=== PATIENT | female | born 1945 | race Hispanic/Latino ===

== ENCOUNTER 2024-06-14 08:31 | Outpatient (CLI) | payer MEDICARE ==
[2024-06-14 09:33] LABS: #Basophils 0.02 10x3/uL (0.0-0.2); #Eosinophils 0.34 10x3/uL (0.0-0.5); #Neutrophils 4.42 10x3/uL (1.5-8.4); %Basophils 0.3 % (0.0-2.0); %Lymphocytes 24.3 % (18.0-47.0); %Monocytes 4.5 % (0.0-10.0); %Neutrophils 65.6 % (40.0-75.0); Hematocrit 36.4 % (34.9-44.5); Hemoglobin 11.3 g/dL (12.0-15.5); Mean Corpuscular Volume 87.1 fL (81.6-98.3); Mean Platelet Volume 11.2 fL (7.4-10.4); Platelet Count 216 10x3/uL (150-450); RBC Distribution Width 12.9 % (11.5-14.5); Red Blood Cell (RBC) Count 4.18 10x6/uL (3.90-5.03); White Blood Cell (WBC) Count 6.7 10x3/uL (3.5-10.5)
== END 2024-06-14 08:32 | disposition home or self-care (01) ==
LOC: CSHLAB 08:31
PROVIDERS: ATTEND Surgery
DX: Z01.818 Encounter for other preprocedural examination (principal); C18.9 Malignant neoplasm of colon, unspecified
CPT/HCPCS: 85025; 93005; 93010

== ENCOUNTER 2024-06-17 05:55 | Day surgery (SDC) | payer MEDICARE ==
[2024-06-14 08:56] VITALS: BMI 28.5
[2024-06-17] MEDS ORDERED: PROPOFOL 20 ML ONE (08:13)
[2024-06-17] MEDS ORDERED: fentaNYL 50 mcg/mL 1 mL Vial ONE (08:13)
[2024-06-17] MEDS ORDERED: Lidocaine 1% PF 5 ML VIAL ONE (08:13)
[2024-06-17] MEDS ORDERED: Bupivacaine/Epinephrine 0.25% 30 ML VIAL ONE (08:15)
[2024-06-17] MEDS ORDERED: CEFAZOLIN 2 GM VIAL ONE (08:18)
[2024-06-17] MEDS ORDERED: ePHEDrine Sulfate 50 MG/10 ML VIAL ONE (08:38)
[2024-06-17] MEDS ORDERED: Ondansetron PF 4 MG/2 ML Vial ONE (09:00)
== END 2024-06-17 10:23 | disposition home or self-care (01) ==
LOC: CSHSDC 05:55
PROVIDERS: ATTEND Surgery
PROC: 0JH63WZ Insertion of Totally Implantable Vascular Access Device into Chest Subcutaneous Tissue and Fascia, Percutaneous Approach (ICD-10-PCS; principal; 2024-06-17)
DX: C78.5 Secondary malignant neoplasm of large intestine and rectum (principal); I10 Essential (primary) hypertension; Z90.710 Acquired absence of both cervix and uterus; Z88.5 Allergy status to narcotic agent; Z79.899 Other long term (current) drug therapy
CPT/HCPCS: 36561; 71045; C1788; J1642; J2405; J2704; J3010